=== PATIENT | male | born 2005 | race Caucasian/White ===

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

== ENCOUNTER 2023-03-29 20:57 | Emergency (ER) | payer OTHER ==
[~2023-03-29 20:57] MED LIST changes: +AZEL1SPR3 NARES; +KETO10TAB PO
[2023-03-29] MEDS ORDERED: NS 1,000 ML IV SCH (21:10)
[2023-03-29 21:13] VITALS: TEMP 98.8
[2023-03-29 21:28] LABS: BASO % 0.4 % (0.0-1.0); EOS # 0.1 10^3/uL (0.0-0.5); EOS % 1.4 % (0.0-3.0); HEMATOCRIT 41.7 % (42.0-52.0); HEMOGLOBIN 14.4 g/dl (13.5-17.5); LYMPH # 1.7 10^3/uL (1.5-5.0); LYMPH % 23.8 % (24.0-44.0); MEAN CORPUSCULAR HGB CONC 34.5 g/dl (32.0-36.5); MEAN CORPUSCULAR VOLUME 83.9 fl (80.0-96.0); MONO # 0.4 10^3/uL (0.0-0.8); MONO % 6.2 % (2.0-8.0); NEUTROPHILS # 4.7 10^3/uL (1.5-8.5); NEUTROPHILS % 68.1 % (36.0-66.0); PLATELET COUNT, AUTOMATED 241 10^3/uL (150-450); RED BLOOD COUNT 4.97 10^6/uL (4.30-6.10); WHITE BLOOD COUNT 6.9 10^3/uL (4.0-10.0)
[2023-03-29 21:53] LABS: ETHYL ALCOHOL (ETHANOL) 0.182 % (0.000-0.010)
[2023-03-29 21:54] LABS: ACETAMINOPHEN LEVEL < 2.0 UG/ML (10.0-20.0)
[2023-03-29 21:55] LABS: ALKALINE PHOSPHATASE 59 U/L (46-116); ALT/SGPT 126 U/L (7.0-40); AST/SGOT 42 U/L (<34); BILIRUBIN,DIRECT 0.2 MG/DL (<0.4); BILIRUBIN,TOTAL 0.4 MG/DL (0.3-1.2); BLOOD UREA NITROGEN 6 MG/DL (9-23); CALCIUM LEVEL 8.8 MG/DL (8.5-10.1); CARBON DIOXIDE LEVEL 23 MMOL/L (20-31); CHLORIDE LEVEL 108 MMOL/L (98-107); CREATININE FOR GFR 0.74 MG/DL (0.70-1.30); GLUCOSE, FASTING 120 MG/DL (60-100); POTASSIUM SERUM 3.2 MMOL/L (3.5-5.1); SALICYLATE LEVEL < 3.0 MG/DL (<30); SODIUM LEVEL 143 MMOL/L (136-145); TOTAL PROTEIN 6.7 G/DL (5.7-8.2)
[2023-03-29 22:00] LABS: RSV AMPLIFICATION NEGATIVE (NEGATIVE)
[2023-03-29] MEDS ORDERED: POTASSIUM CHLORIDE 10MEQ SR TABLET PO ONE (22:00)
[2023-03-29 22:03] LABS: THYROID STIMULATING HORMONE 0.447 uIU/ML (0.48-4.17)
[2023-03-30 00:20] LABS: BARBITURATES URINE NEGATIVE (NEGATIVE)
[2023-03-30 00:21] LABS: AMPHETAMINES LEVEL URINE NEGATIVE (NEGATIVE); BENZODIAZEPINES URINE NEGATIVE (NEGATIVE); COCAINE METABOLITE URINE NEGATIVE (NEGATIVE); METHADONE URINE NEGATIVE (NEGATIVE); OPIATES URINE NEGATIVE (NEGATIVE); PHENCYCLIDINE URINE NEGATIVE (NEGATIVE)
[2023-03-30 00:24] LABS: CANNABINOIDS URINE POSITIVE (NEGATIVE)
[2023-03-30 03:45] VITALS: BP 114/65; O2SAT 100
== END 2023-03-30 05:30 | disposition home or self-care (01) ==
LOC: M ED 20:57 → EDBD 20:57 → M ED 03-30 05:30
DX: F10.129 Alcohol abuse with intoxication, unspecified (principal); F32.A Depression, unspecified; Q75.0 Craniosynostosis; Z88.1 Allergy status to other antibiotic agents; Z91.018 Allergy to other foods; Z79.899 Other long term (current) drug therapy

== ENCOUNTER → 2023-09-28 | Outpatient (CLI) | payer OTHER ==
[2023-09-28 18:06] LABS: HEMATOCRIT 51.8 % (42.0-52.0); HEMOGLOBIN 17.5 g/dl (13.5-17.5); MEAN CORPUSCULAR HEMOGLOBIN 29.6 pg (27.0-33.0); MEAN CORPUSCULAR HGB CONC 33.8 g/dl (32.0-36.5); MEAN CORPUSCULAR VOLUME 87.5 fl (80.0-96.0); PLATELET COUNT, AUTOMATED 240 10^3/uL (150-450); RED BLOOD COUNT 5.92 10^6/uL (4.30-6.10); WHITE BLOOD COUNT 6.2 10^3/uL (4.0-10.0)
[2023-09-28 18:25] LABS: HEMOGLOBIN A1c 4.7 % (4.0-6.0)
[2023-09-28 18:32] LABS: ALBUMIN 4.5 G/DL (3.2-5.2); ALKALINE PHOSPHATASE 61 U/L (46-116); ALT/SGPT 35 U/L (7.0-40); AST/SGOT 20 U/L (<34); BILIRUBIN,TOTAL 0.7 MG/DL (0.3-1.2); BLOOD UREA NITROGEN 13 MG/DL (9-23); CALCIUM LEVEL 9.9 MG/DL (8.5-10.1); CARBON DIOXIDE LEVEL 32 MMOL/L (20-31); CHLORIDE LEVEL 102 MMOL/L (98-107); CHOLESTEROL LEVEL 173 MG/DL (<200); CHOLESTEROL RISK RATIO 6.36 (<5); GLUCOSE, FASTING 81 MG/DL (60-100); HDL CHOLESTEROL 27.2 MG/DL (>40); LDL CHOLESTEROL 112.4 MG/DL (<100); NON-HDL-C 145.8 MG/DL; POTASSIUM SERUM 4.4 MMOL/L (3.5-5.1); SODIUM LEVEL 138 MMOL/L (136-145); TOTAL PROTEIN 7.9 G/DL (5.7-8.2); TRIGLYCERIDES LEVEL 167 MG/DL (<150)
[2023-09-28 18:33] LABS: FREE T4 1.19 NG/DL (0.83-1.43); THYROID STIMULATING HORMONE 0.755 uIU/ML (0.48-4.17); VITAMIN B12 LEVEL 477 PG/ML (211-911)
[2023-09-28 18:39] LABS: HEPATITIS B SURFACE ANTIBODY NEGATIVE (POSITIVE)
[2023-09-28 19:04] LABS: HIV 1&2 SCREEN NEGATIVE (NEGATIVE)
== END ==
LOC: M WUC 12:50
PROVIDERS: ATTEND Internal Medicine
DX: E66.9 Obesity, unspecified (principal); F12.10 Cannabis abuse, uncomplicated; Z79.899 Other long term (current) drug therapy; Z11.3 Encounter for screening for infections with a predominantly sexual mode of transmission

== ENCOUNTER → 2023-10-01 | Outpatient (REF) | payer OTHER | LOC: M LABWUC 16:19 → M LAB REF 16:19 | PROVIDERS: ATTEND Internal Medicine | DX: E66.9 Obesity, unspecified (principal); Z79.899 Other long term (current) drug therapy; F12.10 Cannabis abuse, uncomplicated; Z11.3 Encounter for screening for infections with a predominantly sexual mode of transmission ==

== ENCOUNTER 2023-11-01 20:33 | Emergency (ER) | payer OTHER ==
[~2023-11-01] VITALS: Ht 175.3 cm; Wt 108.1 kg
[2023-11-02 00:13] VITALS: BP 150/93; TEMP 96.1; O2SAT 96
== END 2023-11-02 00:17 | disposition home or self-care (01) ==
LOC: M ED 20:33
DX: S03.42XA Sprain of jaw, left side, initial encounter (principal); Y92.410 Unspecified street and highway as the place of occurrence of the external cause; Y93.9 Activity, unspecified; Y99.9 Unspecified external cause status; Y04.2XXA Assault by strike against or bumped into by another person, initial encounter; F17.210 Nicotine dependence, cigarettes, uncomplicated; Z91.018 Allergy to other foods; Z88.8 Allergy status to other drugs, medicaments and biological substances; Z79.899 Other long term (current) drug therapy; Z79.2 Long term (current) use of antibiotics

== ENCOUNTER 2023-11-20 19:37 | Emergency (ER) | payer OTHER ==
[2023-11-20] MEDS ORDERED: PANT40TA29 (20:06)
[2023-11-20] MEDS ORDERED: ESCITALOPRAM (20:06)
[2023-11-20] MEDS ORDERED: PROP20TA72 (20:06)
[2023-11-20 23:15] VITALS: BP 128/77
[2023-11-20] MEDS: ACETAMINOPHEN TAB 650MG DOSE (2X325MG) PO ONE (23:18)
[2023-11-20 23:28] VITALS: TEMP 97; O2SAT 98
== END 2023-11-20 23:31 | disposition home or self-care (01) ==
LOC: M ED 19:37
DX: S06.0X0A Concussion without loss of consciousness, initial encounter (principal); S60.222A Contusion of left hand, initial encounter; S50.02XA Contusion of left elbow, initial encounter; Y92.9 Unspecified place or not applicable; Y93.9 Activity, unspecified; Y99.9 Unspecified external cause status; W01.0XXA Fall on same level from slipping, tripping and stumbling without subsequent striking against object, initial encounter; Z88.8 Allergy status to other drugs, medicaments and biological substances; Z91.018 Allergy to other foods; Z79.899 Other long term (current) drug therapy

== ENCOUNTER 2024-01-02 00:59 | Emergency (ER) | payer OTHER ==
[~2024-01-02] VITALS: Ht 170.2 cm; Wt 102.1 kg
[~2024-01-02 00:59] MED LIST changes: +ESCITALOPRAM; +PANT40TA29; +PROP20TA72
[2024-01-02] MEDS ORDERED: LEXA1TAB (01:17)
[2024-01-02] MEDS ORDERED: CLEO300C2 PO (05:18)
[2024-01-02] MEDS: CLINDAMYCIN 150MG CAPSULE PO ONE (05:37)
[2024-01-02 05:41] VITALS: BP 122/71; TEMP 98.2; O2SAT 100
== END 2024-01-02 05:44 | disposition home or self-care (01) ==
LOC: M ED 00:59
DX: K04.7 Periapical abscess without sinus (principal); F17.290 Nicotine dependence, other tobacco product, uncomplicated; F12.10 Cannabis abuse, uncomplicated; Z88.1 Allergy status to other antibiotic agents; Z91.018 Allergy to other foods; Z79.2 Long term (current) use of antibiotics; Z79.899 Other long term (current) drug therapy

== ENCOUNTER 2024-01-13 20:02 | Emergency (ER) | payer OTHER ==
[~2024-01-13] VITALS: Ht 170.2 cm; Wt 102.3 kg
[~2024-01-13 20:02] MED LIST changes: +LEXA1TAB
[2024-01-14] MEDS ORDERED: MUCI120T PO (01:37)
[2024-01-14] MEDS ORDERED: ALBU8.5H INH (01:37)
[2024-01-14] MEDS ORDERED: FLON1SPR NARES (01:37)
[2024-01-14 01:45] VITALS: BP 135/84; TEMP 97.6; O2SAT 97
== END 2024-01-14 01:54 | disposition home or self-care (01) ==
LOC: M ED 20:02
DX: R06.02 Shortness of breath (principal); B34.8 Other viral infections of unspecified site; R05.9 Cough, unspecified; Z88.1 Allergy status to other antibiotic agents; Z91.018 Allergy to other foods; Z79.52 Long term (current) use of systemic steroids; Z79.899 Other long term (current) drug therapy

== ENCOUNTER 2024-06-24 12:02 | Emergency (ER) | payer OTHER ==
[~2024-06-24] VITALS: Ht 175.3 cm; Wt 109.2 kg
[~2024-06-24 12:02] MED LIST changes: +ALBU8.5H INH; -CYCL5TAB PO; +CYCL5TAB4 PO; +FLON1SPR NARES; +MUCI120T PO
[2024-06-24] MEDS ORDERED: IBUP-1022 PO (13:16)
[2024-06-24 13:30] VITALS: BP 130/82; TEMP 98.7; O2SAT 98
== END 2024-06-24 13:33 | disposition home or self-care (01) ==
LOC: M ED 12:02
DX: S92.424A Nondisplaced fracture of distal phalanx of right great toe, initial encounter for closed fracture (principal); Y92.019 Unspecified place in single-family (private) house as the place of occurrence of the external cause; Y93.9 Activity, unspecified; Y99.9 Unspecified external cause status; Z88.1 Allergy status to other antibiotic agents; Z91.018 Allergy to other foods; Z79.1 Long term (current) use of non-steroidal anti-inflammatories (NSAID); Z79.51 Long term (current) use of inhaled steroids

== ENCOUNTER 2024-09-06 11:51 | Emergency (ER) | payer OTHER ==
[~2024-09-06] VITALS: Ht 185.4 cm; Wt 103.6 kg
[2024-09-06] MEDS ORDERED: ACET-907 PO (12:00)
[2024-09-06] MEDS ORDERED: SUMA50TA2 PO (14:47)
[2024-09-06 14:59] VITALS: BP 118/66; TEMP 97.7; O2SAT 98
== END 2024-09-06 15:01 | disposition home or self-care (01) ==
LOC: M ED 11:51
DX: H57.12 Ocular pain, left eye (principal)

== ENCOUNTER → 2024-10-10 | Outpatient (REF) | payer OTHER ==
[~2024-10-10] MED LIST changes: +ACET-907 PO; +SUMA50TA2 PO
[2024-10-10 15:55] LABS: BLOOD UREA NITROGEN 13 MG/DL (9-23); CALCIUM LEVEL 9.7 MG/DL (8.5-10.1); CARBON DIOXIDE LEVEL 29 MMOL/L (20-31); CHLORIDE LEVEL 102 MMOL/L (98-107); CHOLESTEROL LEVEL 198 MG/DL (<200); CHOLESTEROL RISK RATIO 6.53 (<5); CREATININE FOR GFR 0.75 MG/DL (0.70-1.30); GLUCOSE, FASTING 73 MG/DL (60-100); HDL CHOLESTEROL 30.3 MG/DL (>40); MAGNESIUM LEVEL 2.1 MG/DL (1.8-2.4); NON-HDL-C 167.7 MG/DL; POTASSIUM SERUM 4.5 MMOL/L (3.5-5.1); SODIUM LEVEL 142 MMOL/L (136-145); TRIGLYCERIDES LEVEL 425 MG/DL (<150)
[2024-10-10 15:56] LABS: THYROID STIMULATING HORMONE 1.474 uIU/ML (0.48-4.17)
[2024-10-10 16:34] LABS: HEMOGLOBIN A1c 4.5 % (4.0-6.0)
== END ==
LOC: M LAB REF 15:14
PROVIDERS: ATTEND Nurse Practitioner Family
DX: R51.9 Headache, unspecified (principal); E66.9 Obesity, unspecified

== ENCOUNTER 2025-04-08 09:26 | Emergency (ER) | payer MEDICARE, OTHER ==
[~2025-04-08] VITALS: Ht 180.3 cm; Wt 106.7 kg
[~2025-04-08 09:26] MED LIST changes: -IBUP-1022 PO; +IBUP600T42 PO
[2025-04-08 09:30] VITALS: TEMP 96.7
[2025-04-08] MEDS: KETOROLAC 30 MG/ML 1 ML VIAL IV ONE (10:46)
[2025-04-08 11:05] LABS: BASO # 0.0 10^3/uL (0.0-0.2); BASO % 0.3 % (0.0-1.0); EOS # 0.4 10^3/uL (0.0-0.5); EOS % 2.8 % (0.0-3.0); LYMPH # 2.8 10^3/uL (1.5-5.0); LYMPH % 21.2 % (24.0-44.0); MONO # 0.8 10^3/uL (0.0-0.8); MONO % 6.4 % (2.0-8.0); NEUTROPHILS # 9.0 10^3/uL (1.5-8.5); NEUTROPHILS % 68.8 % (36.0-66.0); PLATELET COUNT, AUTOMATED 268 10^3/uL (150-450)
[2025-04-08 11:19] LABS: ERYTHROCYTE SEDIMENTATION RATE 24 mm/hr (0-15)
[2025-04-08 11:24] LABS: C REACTIVE PROTEIN QUANTITATIV 0.80 MG/DL (<1.0)
[2025-04-08 11:25] LABS: CALCIUM LEVEL 10.4 MG/DL (8.5-10.1); CARBON DIOXIDE LEVEL 30 MMOL/L (20-31); CHLORIDE LEVEL 102 MMOL/L (98-107); CREATININE FOR GFR 0.80 MG/DL (0.70-1.30); GLOMERULAR FILTRATION RATE > 90.0 (>60); POTASSIUM SERUM 4.8 MMOL/L (3.5-5.1); SODIUM LEVEL 141 MMOL/L (136-145)
[2025-04-08 11:29] LABS: MONO REFLEX EBV VCA IgM NEGATIVE (NEGATIVE)
[2025-04-08] MEDS ORDERED: ISOVUE-370 76% 100 ML VIAL As Ordered ONE (11:57)
[2025-04-08] MEDS ORDERED: ALBU8.5H INH (12:10)
[2025-04-08] MEDS ORDERED: HOME MED LIST COMPLETE! XX SCH (12:10)
[2025-04-08] MEDS ORDERED: HYDR-643 PO (12:10)
[2025-04-08] MEDS ORDERED: CETI-24 PO (12:10)
[2025-04-08 12:52] VITALS: BP 129/80; O2SAT 99
[2025-04-08] MEDS ORDERED: CLIN150C17 PO (13:44)
[2025-04-08] MEDS ORDERED: MEDR4PAK PO (13:44)
[2025-04-08] MEDS: CLINDAMYCIN 150 MG CAPSULE PO ONE (13:44)
== END 2025-04-08 14:00 | disposition home or self-care (01) ==
LOC: M ED 09:26
DX: J02.0 Streptococcal pharyngitis (principal); R59.0 Localized enlarged lymph nodes; J45.909 Unspecified asthma, uncomplicated; F17.210 Nicotine dependence, cigarettes, uncomplicated; F12.10 Cannabis abuse, uncomplicated; Z88.1 Allergy status to other antibiotic agents; Z91.018 Allergy to other foods; Z79.1 Long term (current) use of non-steroidal anti-inflammatories (NSAID); Z79.51 Long term (current) use of inhaled steroids; Z79.2 Long term (current) use of antibiotics; Z79.899 Other long term (current) drug therapy
CPT/HCPCS: 70491; 71045; 80048; 84145; 84443; 85025; 85652; 86140; 86308; 86665; 87040; 87486; 87581; 87633; 87798; 87880; 93041; 94760; 96374; 96375; 99284; J1100; J1885; Q9967